=== PATIENT | female | born 1960 ===

== ENCOUNTER 2016-10-14 17:10 | Emergency (ER) | payer BC ==
[2016-10-14 17:15] VITALS: BP 133/80; PULSE 102; RESP 16; TEMP 98.3; O2SAT 98
[2016-10-14] MEDS ORDERED: TDAP Vaccine 0.5 mL Syr IM ONE (17:37)
--- NOTE | 2016-10-14 17:52 | ED PDOC ---
HPI: Trauma/Fall - HPI Time Seen by Provider: 10/14/16 17:14 Chief Complaint (Nursing): Lower Extremity Problem/Injury Chief Complaint (Provider): Fall/injury History Per: Patient History/Exam Limitations: no limitations Onset/Duration Of Symptoms: Mins (prior to arrival) Additional Complaint(s): Vidya Guardado is a 56 year old female, left-hand dominant, with previous medical history of diabetes, who presents to the emergency department for an evaluation of a fall associated with right hand, right knee and left ankle pain status post twisting her left ankle in a hole while crossing the street prior to arrival. PMD: Alex Beasley MD Past Medical History Reviewed: Historical Data, Nursing Documentation, Vital Signs Vital Signs: Last Vital Signs Temp 98.3 F 10/14/16 17:13 Pulse 102 H 10/14/16 17:13 Resp 16 10/14/16 17:13 BP 133/80 10/14/16 17:13 Pulse Ox 98 10/14/16 18:00 - Medical History PMH: Diabetes - Family History Family History: States: Unknown Family Hx - Social History Current smoker - smoking cessation education provided: No Alcohol: None Drugs: Denies - Allergies Allergies/Adverse Reactions: Allergies Allergy/AdvReac Type Severity Reaction Status Date / Time Penicillins Allergy RASH Verified 10/14/16 17:13 Review of Systems ROS Statement: Except As Marked, All Systems Reviewed And Found Negative Musculoskeletal: Positive for: Hand Pain (right), Leg Pain (right knee), Foot Pain (left ankle) Physical Exam - Reviewed Nursing Documentation Reviewed: Yes Vital Signs Reviewed: Yes - Physical Exam Appears: Positive for: Well, Non-toxic, No Acute Distress Head Exam: Positive for: ATRAUMATIC, NORMAL INSPECTION, NORMOCEPHALIC Skin: Positive for: Normal Color Pulses-Dorsalis Pedis (L): 2+ Pulses-Dorsalis Pedis (R): 2+ Extremity: Positive for: Normal ROM, Tenderness (palmar aspect of right hand associated with mild ecchymosis; below left lateral malleolus; over base of 5th metatarsals; below medial malleolus), Deformity (superficial abrasion to right knee). Negative for: Other (active bleeding) Neurologic/Psych: Positive for: Alert, program services assistant II-XII, Oriented - ECG O2 Sat by Pulse Oximetry: 98 (RA) Pulse Ox Interpretation: Normal Medical Decision Making Medical Decision Making: Initial Impression: Fall Initial Plan: * Xray hand (right) * Xray knee (right) * Tylenol 650mg PO * TDAP vaccine * 0.5ml IM * Xray ankle (left) * * All XRs, NAD as rad by [facility] * * * Rice Therapy advised * Abrasion site cleaned and dressed by fha underwriter. Air cast applied to ankle. Scribe Attestation: Documented by Bisi Sandy, acting as a scribe for Cassia Jon Provider Scribe Attestation: All medical record entries made by the Scribe were at my direction and personally dictated by me. I have reviewed the chart and agree that the record accurately reflects my personal performance of the history, physical exam, medical decision making, and the department course for this patient. I have also personally directed, reviewed, and agree with the discharge instructions and disposition. Disposition - Clinical Impression Clinical Impression: Multiple contusions, Abrasion, Ankle sprain - Patient ED Disposition Is Patient to be Admitted: No - Disposition Referrals: FAMILY PROVIDER,NO [Primary Care Provider] - Disposition: Routine/Home Disposition Time: 19:00 Condition: STABLE Instructions: Ankle Sprain (ED), Contusion in Adults (ED), Abrasion (ED) Forms: [employer] ([place]) - POA Present On Arrival: None
--- NOTE | 2016-10-15 07:15 | RAD ---
HISTORY: pain s/p fall COMPARISON: No prior FINDINGS: BONES: Normal. No fracture. JOINTS: Normal. No osteoarthritis. SOFT TISSUE: Normal. OTHER FINDINGS: None . IMPRESSION: Normal Bone Xray.
--- NOTE | 2016-10-15 07:18 | RAD ---
HISTORY: pain s/p fall COMPARISON: No prior FINDINGS: BONES: Normal. No fracture. JOINTS: Normal. No osteoarthritis. SOFT TISSUE: Normal. OTHER FINDINGS: Heel spur.. IMPRESSION: Heel spur.
--- NOTE | 2016-10-15 07:19 | RAD ---
PROCEDURE: Right Knee Radiographs. HISTORY: pain s/p fall COMPARISON: None. FINDINGS: BONES: Normal. No fracture. JOINTS: Normal. No osteoarthritis. JOINT EFFUSION: None. OTHER FINDINGS: None. IMPRESSION: Normal radiographs of the right knee.
== END 2016-10-14 19:23 | disposition home or self-care (01) ==
LOC: H.ER 17:10
DX: S93.402A Sprain of unspecified ligament of left ankle, initial encounter (principal); T14.8 Other injury of unspecified body region; W19.XXXA Unspecified fall, initial encounter; Y92.410 Unspecified street and highway as the place of occurrence of the external cause; E11.9 Type 2 diabetes mellitus without complications; Z88.0 Allergy status to penicillin